=== PATIENT | female | born 1950 | race Caucasian/White ===

== ENCOUNTER 2019-11-16 11:30 | Day surgery (SDC) | payer MEDICARE, BC, SELFPAY ==
[2019-11-10 11:52] VITALS: BMI 21.6
[2019-11-16] VITALS (7 sets, daily range): BP systolic 127–156; BP diastolic 64–83; PULSE 74–90; RESP 18–22; TEMP 36.2–36.9; O2SAT 97–100
[2019-11-16 11:26] LABS: Coronavirus 19 IgG Antibody Negative (Negative); Coronavirus 19 IgM Antibody Negative (Negative)
--- NOTE | 2019-11-16 13:43 | [facility].PROC ---
[facility] Procedure Note Procedure Note:: Upper Endoscopy Procedure Report: Esophagogastroduodenoscopy with cold biopsies and TTS balloon dilation Endoscopost: Lalo Lopez II, MD Referring Physician: Bre Aldridge MD ([facility]) Date of Procedure: November 16, 2019 Equipment: Olympus GIF 180 standard upper endoscope Sedation: MAC sedation Indications: Mrs. Bahena is a 68-year-old female who reports dysphagia to mostly solid foods. She did have an upper endoscopy with ms in 2010. She had 2 subsequent upper endoscopies locally in [place] (Dr. Dockery). She did not have any dilation at the time of her last endoscopy. She does get some bloating, nausea, heartburn and reflux. She has some regurgitation. She also reports globus sensation. The patient does have some intermittent right upper quadrant abdominal discomfort. She did have cholecystectomy in 2017 in [place]. At that time, she had an ultrasound and HIDA scan. She did have cholecystitis (chronic) but is uncertain whether she had gallbladder dyskinesia. She did have gallstones. She did have problems with constipation prior to the cholecystectomy but now has more normal bowel function. She does have occasional incomplete defecation. She did have a colonoscopy 7 or 8 years ago in [place] (Dr. Ryder). The patient had seen ms for office consultation on July 16, 2019. Subsequent lab work did show normal liver chemistries but slightly elevated lipase level of 533. Her amylase level was normal. Procedure: Prior to the procedure, a history and physical exam was performed, and patient's medications and allergies were reviewed. The risks, benefits and alternatives of the sedation and procedure were discussed with the patient. All questions were answered and informed consent was obtained. The patient was brought to the procedure room. Patient identification and proposed procedure were verified by the physician and the nurse. The patient was placed in a left lateral decubitus position and the scope was passed under direct vision. Throughout the procedure, the patient's blood pressure, pulse, and oxygen saturations were monitored continuously. The upper GI endoscopy was accomplished without difficulty. The patient tolerated the procedure well. Findings: The scope was passed directly into the upper esophagus and advanced to the third portion of the duodenum. The post bulbar duodenum and duodenal bulb were normal with normal mucosa and conniventes. The scope was withdrawn through a normal duodenal bulb and pylorus into the stomach. There was mild linear reactive gastropathy of the antrum and body. The remainder of the antrum, body and fundus of the stomach were grossly normal. Upon retroflexion there was a very small sliding hiatal hernia (1 to 2 cm) hiatal hernia. 2 biopsies were taken in the antrum and along the lesser curvature for histology to rule out gastritis and/or H pylori. The scope was then withdrawn into the esophagus. There was a distal Schatzki's ring. There were tertiary contractions and evidence of mild esophageal dysmotility. The Schatzki's ring was dilated to 60 [place]/20 mm with a TTS hydrostatic balloon. The entire esophagus was dilated. There was some resistance at the cricopharyngeus/cricopharyngeal spasm. The remainder of the esophageal mucosa was normal. Impression: 1. Cricopharyngeal spasm status post dilation to 20 mm 2. Schatzki's ring status post dilation to 20 mm 3. Nonerosive GERD with moderate esophageal dysmotility and very small 1 to 2 cm hiatal hernia 4. Mild linear reactive gastropathy Plan: I will discussed the findings with patient and family. I would recommend a PPI for 3 months. I would also recommend a fiber bowel regimen. The patient was having some right upper quadrant discomfort and elevated lipase level. 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 If this does worsen or if she does develop pancreatitis in t
== END 2019-11-16 14:45 | disposition home or self-care (01) ==
PROVIDERS: Visit Provider Internal Medicine Gastroenterology
PROC: 0DJ08ZZ Inspection of Upper Intestinal Tract, Via Natural or Artificial Opening Endoscopic (ICD-10-PCS; CPT 43235; principal; 2019-11-16 13:00)
DX: J39.2 Other diseases of pharynx; K22.2 Esophageal obstruction; K44.9 Diaphragmatic hernia without obstruction or gangrene; K21.9 Gastro-esophageal reflux disease without esophagitis; K31.9 Disease of stomach and duodenum, unspecified; Z87.19 Personal history of other diseases of the digestive system; I10 Essential (primary) hypertension; J44.9 Chronic obstructive pulmonary disease, unspecified; E78.5 Hyperlipidemia, unspecified; Z82.49 Family history of ischemic heart disease and other diseases of the circulatory system; Z83.438 Family history of other disorder of lipoprotein metabolism and other lipidemia; Z80.8 Family history of malignant neoplasm of other organs or systems
CPT/HCPCS: 43239; 43249; 36415; 86328; 88305; C1726